=== PATIENT | male | born 1990 | race Caucasian/White ===

== ENCOUNTER 2016-05-01 07:15 | Emergency (ER) | payer MEDICAID, OTHER ==
[~2016-05-01] VITALS: Ht 170.2 cm; Wt 75.0 kg
[~2016-05-01 07:15] MED LIST: DIVA500T35 PO; LURA80 PO
[2016-05-01] MEDS ORDERED: DIVA500T35 PO (07:28)
[2016-05-01 07:51] LABS: BASOPHILS % (AUTO) 0.2 % (0.0-2.0); EOSINOPHILS % (AUTO) 4.7 % (1.0-6.0); HEMATOCRIT 47.4 % (41-53); HEMOGLOBIN 15.5 g/dL (13.5-17.5); LYMPHOCYTES # (AUTO) 2.4 K/uL (1.0-4.8); LYMPHOCYTES % (AUTO) 25.6 % (22.0-44.0); MEAN CORPUSCULAR HEMOGLOBIN 30.3 pg (26.0-34.0); MEAN CORPUSCULAR HGB CONC 32.8 G/dL (31.0-37.0); MEAN CORPUSCULAR VOLUME 92 fL (80-100); MONOCYTES # (AUTO) 1.1 K/uL (0.1-1.0); MONOCYTES % (AUTO) 11.7 % (2.0-9.0); NEUTROPHILS # (AUTO) 5.4 K/uL (1.8-7.7); NEUTROPHILS % (AUTO) 57.8 % (40.0-70.0); PLATELET COUNT (AUTO) 310 K/uL (150-450); RED BLOOD CELL COUNT(AUTO) 5.13 MIL/uL (4.50-5.90); RED CELL DISTRIBUTION WIDTH 13.4 % (11.5-14.5); WHITE BLOOD COUNT (AUTO) 9.4 K/uL (4.5-11.0)
[2016-05-01 08:00] LABS: ANION GAP 7 mmol/L (8-16); CALCIUM, TOTAL 8.7 mg/dL (8.8-10.5); CARBON DIOXIDE 32 mmol/L (22-29); CHLORIDE 103 mmol/L (98-107); CREATININE 0.96 mg/dL (0.60-1.30); GLOMERULAR FILTR. RATE CALC > 60 mL/min (>60); POTASSIUM 3.9 mmol/L (3.5-5.1); SODIUM SERUM 142 mmol/L (136-145); UREA NITROGEN, BLOOD 14 mg/dL (7-18)
[2016-05-01 08:05] LABS: ALANINE AMINOTRANSFERASE 24 U/L (12-78); ALBUMIN 3.6 g/dL (3.4-5.0); ASPARTATE AMINOTRANSFERASE 14 U/L (15-37); BILIRUBIN,TOTAL 0.4 mg/dL (0.1-1.0); TOTAL PROTEIN, SERUM 7.4 g/dL (6.4-8.2)
[2016-05-01] MEDS ORDERED: LORazepam 2 MG TABLET PO ONE (09:30)
[2016-05-01] MEDS ORDERED: HALOPERIDOL 5 MG TABLET PO ONE (09:30)
[2016-05-01 11:50] VITALS: BP 118/79
== END 2016-05-01 12:04 | disposition home or self-care (01) ==
LOC: EMS 07:18 → EEVIPCON 07:18 → EMS 12:04
DX: F31.9 Bipolar disorder, unspecified (principal); F41.9 Anxiety disorder, unspecified; Z87.891 Personal history of nicotine dependence
CPT/HCPCS: 36415; 80053; 80307; 85025; 99284; G0480

== ENCOUNTER 2023-05-08 10:44 | Emergency (ER) | payer MEDICAID, OTHER ==
[~2023-05-08] VITALS: Ht 170.2 cm; Wt 86.4 kg
[~2023-05-08 10:44] MED LIST changes: +DIVA-112 PO; -DIVA500T35 PO; +HALO5TAB23 PO; -LURA80 PO
[2023-05-08] MEDS ORDERED: HALO2 PO (10:55)
[2023-05-08 10:56] VITALS: BP 124/74; PULSE 98; RESP 19; TEMP 98
[2023-05-08 11:46] LABS: BASOPHILS % (AUTO) 0.5 % (0.0-2.0); EOSINOPHILS % (AUTO) 2.6 % (1.0-6.0); HEMATOCRIT 42.6 % (41-53); LYMPHOCYTES # (AUTO) 1.5 K/uL (1.0-4.8); LYMPHOCYTES % (AUTO) 16.6 % (22.0-44.0); MEAN CORPUSCULAR HEMOGLOBIN 29.8 pg (26.0-34.0); MEAN CORPUSCULAR VOLUME 91 fL (80-100); MONOCYTES # (AUTO) 0.5 K/uL (0.1-1.0); MONOCYTES % (AUTO) 5.8 % (2.0-9.0); NEUTROPHILS # (AUTO) 6.9 K/uL (1.8-7.7); NEUTROPHILS % (AUTO) 74.5 % (40.0-70.0); PLATELET COUNT (AUTO) 357 K/uL (150-450); RED BLOOD CELL COUNT(AUTO) 4.71 MIL/uL (4.50-5.90); RED CELL DISTRIBUTION WIDTH 13.2 % (11.5-14.5); WHITE BLOOD COUNT (AUTO) 9.2 K/uL (4.5-11.0)
[2023-05-08 12:07] LABS: ANION GAP 10 mmol/L (8-16); CALCIUM, TOTAL 9.1 mg/dL (8.8-10.5); CARBON DIOXIDE 27 mmol/L (22-29); CHLORIDE 100 mmol/L (98-107); CREATININE 0.83 mg/dL (0.60-1.30); GLOMERULAR FILTR. RATE CALC > 60 mL/min (>60); GLUCOSE,RANDOM 100 mg/dL (70-110); SODIUM SERUM 137 mmol/L (136-145); UREA NITROGEN, BLOOD 17 mg/dL (7-18)
[2023-05-08 12:15] LABS: ALANINE AMINOTRANSFERASE 35 U/L (12-78); ALBUMIN 3.9 g/dL (3.4-5.0); ALKALINE PHOSPHATASE 106 U/L (46-116); ASPARTATE AMINOTRANSFERASE 21 U/L (15-37); BILIRUBIN,TOTAL 0.3 mg/dL (0.1-1.0); TOTAL PROTEIN, SERUM 7.7 g/dL (6.4-8.2)
[2023-05-08 13:02] LABS: ALCOHOL, BLOOD (SERUM) < 3 mg/dL (0-10)
[2023-05-08] MEDS ORDERED: OLAN5TAB52 PO (14:31)
[2023-05-08] MEDS: OLANZapine 5 MG TABLET PO ONE (14:43)
== END 2023-05-08 15:13 | disposition home or self-care (01) ==
LOC: EMS 10:53
DX: R44.0 Auditory hallucinations (principal); F31.9 Bipolar disorder, unspecified; Z87.891 Personal history of nicotine dependence
CPT/HCPCS: 99284; 80053; 85025; 36415; G0480; 99283

== ENCOUNTER 2023-05-25 12:08 | Inpatient (IN) | payer MEDICAID ==
[~2023-05-25] VITALS: Ht 170.2 cm; Wt 91.6 kg
[~2023-05-25 12:08] MED LIST changes: +HALO2 PO; +OLAN5TAB52 PO
[2023-05-25 12:35] LABS: BASOPHILS % (AUTO) 0.7 % (0.0-2.0); EOSINOPHILS % (AUTO) 5.1 % (1.0-6.0); HEMATOCRIT 43.3 % (41-53); HEMOGLOBIN 14.8 g/dL (13.5-17.5); LYMPHOCYTES # (AUTO) 1.8 K/uL (1.0-4.8); LYMPHOCYTES % (AUTO) 15.2 % (22.0-44.0); MEAN CORPUSCULAR HEMOGLOBIN 30.9 pg (26.0-34.0); MEAN CORPUSCULAR HGB CONC 34.2 G/dL (31.0-37.0); MEAN CORPUSCULAR VOLUME 90 fL (80-100); MONOCYTES # (AUTO) 1.3 K/uL (0.1-1.0); MONOCYTES % (AUTO) 10.9 % (2.0-9.0); NEUTROPHILS # (AUTO) 8.3 K/uL (1.8-7.7); NEUTROPHILS % (AUTO) 68.1 % (40.0-70.0); PLATELET COUNT (AUTO) 359 K/uL (150-450); RED CELL DISTRIBUTION WIDTH 13.2 % (11.5-14.5); WHITE BLOOD COUNT (AUTO) 12.1 K/uL (4.5-11.0)
[2023-05-25 12:45] LABS: ANION GAP 9 mmol/L (8-16); CALCIUM, TOTAL 9.3 mg/dL (8.8-10.5); CARBON DIOXIDE 27 mmol/L (22-29); CHLORIDE 100 mmol/L (98-107); CREATININE 0.89 mg/dL (0.60-1.30); GLOMERULAR FILTR. RATE CALC > 60 mL/min (>60); GLUCOSE,RANDOM 106 mg/dL (70-110); SODIUM SERUM 136 mmol/L (136-145); UREA NITROGEN, BLOOD 19 mg/dL (7-18)
[2023-05-25 12:45] LABS: COVID AG,FIA SOURCE NASAL SWAB
[2023-05-25 12:52] LABS: ALCOHOL, BLOOD (SERUM) < 3 mg/dL (0-10)
[2023-05-25 12:55] LABS: ALANINE AMINOTRANSFERASE 44 U/L (12-78); ALBUMIN 3.6 g/dL (3.4-5.0); ALKALINE PHOSPHATASE 123 U/L (46-116); ASPARTATE AMINOTRANSFERASE 24 U/L (15-37); BILIRUBIN,TOTAL 0.3 mg/dL (0.1-1.0); TOTAL PROTEIN, SERUM 8.3 g/dL (6.4-8.2)
[2023-05-25 13:17] LABS: SARS-COV2 (COVID) ANTIGEN,FIA Negative (Negative)
[2023-05-25 13:56] LABS: PH,URINE DRUG SCREEN 6.5 (5.0-8.0)
[2023-05-25 14:09] LABS: ALCOHOL, URINE DRUG SCREEN NEGATIVE (NEGATIVE); AMPHET/METH SCREEN,URINE NEGATIVE (NEGATIVE); BARBITURATE SCREEN, URINE NEGATIVE (NEGATIVE); BENZODIAZEPINES SCREEN,URINE NEGATIVE (NEGATIVE); CANNABINOID SCREEN,URINE NEGATIVE (NEGATIVE); COCAINE SCREEN,URINE NEGATIVE (NEGATIVE); METHADONE SCREEN, URINE NEGATIVE (NEGATIVE); OPIATE SCREEN,URINE NEGATIVE (NEGATIVE); PHENCYCLIDINE SCREEN,URINE NEGATIVE (NEGATIVE)
[2023-05-25 18:07] VITALS: BP 137/78; PULSE 90; RESP 17; TEMP 100; O2SAT 97
[2023-05-25 22:00] VITALS: BP 128/68; PULSE 82; RESP 18; TEMP 98.2; O2SAT 98
[2023-05-26] MEDS ORDERED: PETROLATUM,WHITE 28 GM JELLY TP PRN (05:30)
[2023-05-26] MEDS ORDERED: BENZOCAINE/MENTHOL LOZENGE PO PRN (05:30)
[2023-05-26] MEDS ORDERED: ALBUTEROL SULFATE HFA 90 MCG/PUFF 8 GM INHALER IH PRN (05:30)
[2023-05-26] MEDS ORDERED: DOCUSATE SODIUM 100 MG CAPSULE PO PRN (05:30)
[2023-05-26] MEDS ORDERED: MAGNESIUM HYDROXIDE SUSPENSION 30 ML UDCUP PO PRN (05:30)
[2023-05-26] MEDS ORDERED: ACETAMINOPHEN 325 MG TABLET PO PRN (05:30)
[2023-05-26] MEDS ORDERED: LOPERAMIDE HCL 2 MG CAPSULE PO PRN (05:30)
[2023-05-26] MEDS ORDERED: CloNIDine HCL 0.1 MG TABLET PO PRN (05:30)
[2023-05-26] MEDS ORDERED: IBUPROFEN 600 MG TABLET PO PRN (05:30)
[2023-05-26] MEDS ORDERED: ONDANSETRON HCL 4 MG TABLET PO PRN (05:30)
[2023-05-26] MEDS ORDERED: MAG HYDROX/ALUMINUM HYD/SIMETH ES 30 ML SUSPENSION UDCUP PO PRN (05:30)
[2023-05-26] MEDS ORDERED: OMEPRAZOLE 20 MG CAPSULE PO PRN (05:30)
[2023-05-26] MEDS ORDERED: BACITRACIN 28 GM OINTMENT TP PRN (05:30)
[2023-05-26 09:09] VITALS: BP 131/66; PULSE 83; RESP 17; TEMP 97.5; O2SAT 99
[2023-05-26] MEDS: LORazepam 2 MG TABLET PO PRN (16:27)
[2023-05-26] MEDS: HALOPERIDOL 5 MG TABLET PO PRN (16:27)
[2023-05-26] MEDS: HALOPERIDOL 10 MG TABLET PO SCH (20:31)
[2023-05-26] MEDS: TraZODone HCL 50 MG TABLET PO SCH (20:31)
[2023-05-26] MEDS: BENZTROPINE MESYLATE 2 MG TABLET PO SCH (20:31)
[2023-05-26] MEDS: ZOLPIDEM TARTRATE 10 MG TABLET PO PRN (20:31)
[2023-05-26 20:49] VITALS: BP 120/57; PULSE 75; RESP 16; TEMP 97.8; O2SAT 98
[2023-05-27 08:51] VITALS: BP 101/67; PULSE 84; RESP 17; TEMP 98.5; O2SAT 99
[2023-05-27 21:01] VITALS: BP 99/64; PULSE 77; RESP 17; TEMP 97.1; O2SAT 98
[2023-05-28] MEDS: PNEUMOCOCCAL VACCINE POLYVALENT 0.5 ML SYRINGE [PPSV23] IM. ONE (06:30)
[2023-05-28 08:19] VITALS: BP 128/66; PULSE 96; RESP 18; TEMP 97.9; O2SAT 100
[2023-05-28 20:09] VITALS: BP 109/66; PULSE 76; RESP 18; TEMP 97.1; O2SAT 99
[2023-05-29] MEDS ORDERED: TRAZ-252 PO (11:30)
[2023-05-29] MEDS ORDERED: HALO10TA21 PO (11:32)
[2023-05-29] MEDS ORDERED: BENZ2TAB71 PO (11:32)
[2023-05-29] MEDS ORDERED: [UNRECOGNIZED DRUG - CODE] TP (11:47)
[2023-05-29 14:15] VITALS: BP 126/58; PULSE 68; RESP 19; TEMP 97.6; O2SAT 98
== END 2023-05-29 14:15 | disposition home or self-care (01) | DRG 750 ==
LOC: EMS 12:10 → B3A 14:57
PROVIDERS: ADMIT Psychiatry & Neurology Psychiatry; ATTEND Psychiatry & Neurology Psychiatry
DX: F20.9 Schizophrenia, unspecified (principal); Z91.148 Patient's other noncompliance with medication regimen for other reason; F12.90 Cannabis use, unspecified, uncomplicated; F31.9 Bipolar disorder, unspecified; F41.9 Anxiety disorder, unspecified; Z20.822 Contact with and (suspected) exposure to COVID-19; G47.00 Insomnia, unspecified; K21.9 Gastro-esophageal reflux disease without esophagitis; K59.00 Constipation, unspecified; Z91.012 Allergy to eggs
CPT/HCPCS: 80053; 80307; 85025; G0480

== ENCOUNTER 2023-06-08 11:07 | Emergency (ER) | payer MEDICAID ==
[~2023-06-08] VITALS: Ht 177.8 cm; Wt 97.7 kg
[~2023-06-08 11:07] MED LIST changes: +BENZ2TAB71 PO; -DIVA-112 PO; +HALO10TA21 PO; -HALO2 PO; -HALO5TAB23 PO; -OLAN5TAB52 PO; +TRAZ-252 PO; +[UNRECOGNIZED DRUG - CODE] TP
[2023-06-08 11:11] VITALS: BP 121/67; PULSE 94; RESP 18; TEMP 99.8
[2023-06-08 14:01] LABS: COVID AG,FIA SOURCE NASAL SWAB
[2023-06-08 14:37] LABS: INFLUENZA TYPE A NEGATIVE FOR TYPE A (NEGATIVE); INFLUENZA TYPE B NEGATIVE FOR TYPE B (NEGATIVE); SARS-COV2 (COVID) ANTIGEN,FIA Negative (Negative)
[2023-06-08] MEDS: ALBUTEROL SULFATE HFA 90 MCG/PUFF 8 GM INHALER IH ONE (15:41)
== END 2023-06-08 15:47 | disposition home or self-care (01) ==
LOC: EMS 11:07
DX: J06.9 Acute upper respiratory infection, unspecified (principal); F20.9 Schizophrenia, unspecified; F31.9 Bipolar disorder, unspecified; Z87.891 Personal history of nicotine dependence; Z90.49 Acquired absence of other specified parts of digestive tract; Z20.822 Contact with and (suspected) exposure to COVID-19
CPT/HCPCS: 99284; 71045; 87426; 87804; 94640; J3535